=== PATIENT | female | born 1995 | race Caucasian/White ===

== ENCOUNTER 2021-08-15 17:40 | Emergency (ER) | payer MEDICAID ==
[~2021-08-15] VITALS: Ht 165.1 cm; Wt 63.5 kg
[2021-08-15 17:40] VITALS: BP_SYST 126
[2021-08-15 20:37] LABS: BILIRUBIN,URINE NEGATIVE (NEGATIVE); CLARITY/URINE CLEAR (CLEAR); COLOR,URINE YELLOW (YELLOW); GLUCOSE,URINE NEGATIVE (NEGATIVE); KETONES,URINE NEGATIVE (NEGATIVE); LEUKOCYTE ESTERASE ,URINE NEGATIVE (NEGATIVE); NITRITE, URINE NEGATIVE (NEGATIVE); PH,URINE 6.5 (5.0-8.0); PROTEIN URINE NEGATIVE (NEGATIVE); UROBILINOGEN,URINE 0.2 (0.2-1.0)
[2021-08-15 20:38] LABS: BLOOD, URINE TRACE (NEGATIVE)
[2021-08-15 20:59] LABS: BACTERIA,URINE FEW /HPF (None Seen); RBC,URINE 0-3 /HPF (0-3); WBC,URINE 0-3 /HPF (0-3)
[2021-08-15 21:21] LABS: BASOPHILS % (AUTO) 0.5 % (0.0-2.0); EOSINOPHILS % (AUTO) 0.4 % (0.0-4.0); HEMATOCRIT 38.3 % (36-48); HEMOGLOBIN 13.4 g/dL (12.0-16.0); LYMPHOCYTES # (AUTO) 2.2 K/uL (1.0-5.5); MEAN CORPUSCULAR HEMOGLOBIN 31 pg (27-31); MEAN CORPUSCULAR HGB CONC 35 % (32-36); MEAN CORPUSCULAR VOLUME 90 fL (79.0-98.0); MONOCYTES # (AUTO) 0.5 K/uL (0.0-1.0); MONOCYTES % (AUTO) 5.9 % (1.7-9.3); NEUTROPHILS # (AUTO) 5.7 K/uL (1.8-7.7); NEUTROPHILS % (AUTO) 67.2 % (40.0-70.0); PLATELET COUNT (AUTO) 325 K/uL (130-430); RED BLOOD CELL COUNT(AUTO) 4.26 MIL/uL (4.2-6.2); RED CELL DISTRIBUTION WIDTH 13.3 % (9.0-15.0); WHITE BLOOD COUNT (AUTO) 8.4 K/uL (4.8-10.8)
[2021-08-15 22:22] LABS: CALCIUM 9.7 mg/dL (8.4-11.0); CREATININE 0.83 mg/dL (0.55-1.30); POTASSIUM 4.3 mmol/L (3.5-5.1)
[2021-08-15] MEDS ORDERED: KETOROLAC TROMETHAMINE 60 MG/2 ML VIAL IM ONE ×2 (22:27→22:30)
[2021-08-15 22:28] LABS: ALBUMIN 4.4 g/dL (3.4-4.8); TOTAL BILIRUBIN 0.3 mg/dL (0.0-1.0)
[2021-08-15] MEDS ORDERED: cefTRIAXone 1 GM in D5W 50 ML IV ONE (22:30)
[2021-08-15] MEDS ORDERED: NACL 0.9% 1,000 ML IV ONE (22:30)
[2021-08-15] MEDS ORDERED: CEFU250T85 PO (22:40)
[2021-08-15] MEDS ORDERED: TRAM50TA2 PO (22:40)
[2021-08-15] MEDS ORDERED: IBUP-1969 PO (22:42)
[2021-08-15] MEDS ORDERED: cefTRIAXone 1 GM VIAL ONE (22:47)
[2021-08-15 23:57] VITALS: BP_SYST 126
== END 2021-08-15 23:53 | disposition home or self-care (01) ==
LOC: SED 17:40
DX: N12 Tubulo-interstitial nephritis, not specified as acute or chronic (principal)
CPT/HCPCS: 36415; 74176; 76376; 80053; 81000; 81025; 83605; 85025; 87040; 96365; 96372; 99285; J0696; J1885